=== PATIENT | female | born 1960 | race Caucasian/White ===

== ENCOUNTER 2016-06-27 18:30 | Inpatient (IN) | payer OTHER, SELFPAY ==
[~2016-06-27] VITALS: Ht 152.4 cm; Wt 80.5 kg
[2016-06-27] MEDS ORDERED: KETOROLAC 30 MG/1 ML IVPush ONE (19:00)
[2016-06-27] MEDS ORDERED: SODIUM CHLORIDE 0.9% 1,000ML IVBOLUS ONE (19:00)
[2016-06-27] MEDS ORDERED: ONDANSETRON 2MG/ML, 2ML IVPush ONE ×2 (19:00→22:00)
[2016-06-27] MEDS ORDERED: ONDANSETRON 2MG/ML, 2ML ONE ×2 (19:01→21:52)
[2016-06-27] MEDS ORDERED: KETOROLAC 30 MG/1 ML ONE (19:01)
[2016-06-27 19:45] LABS: ASPARTATE AMINO TRANSFERASE 23 U/L (15-37); BLOOD UREA NITROGEN 19 mg/dL (7-18)
[2016-06-27] MEDS ORDERED: HYDROmorphone 1 MG/ML, 1ML ONE (20:24)
[2016-06-27] MEDS: HYDROmorphone 1 MG/ML, 1ML IVPush PRN ×2 (20:25→20:34)
[2016-06-27] MEDS ORDERED: ACETAMINOPHEN 325 MG TABLET PO ONE (20:30)
[2016-06-27] MEDS ORDERED: ACETAMINOPHEN 325 MG TABLET ONE (20:32)
[2016-06-28] MEDS ORDERED: SODIUM CHLORIDE 0.9% 1,000 ML IV ONE (00:07)
[2016-06-28] MEDS ORDERED: ONDANSETRON 2MG/ML, 2ML IVPush PRN ×3 (00:30→15:30)
[2016-06-28] MEDS ORDERED: HYDROmorphone 1 MG/ML, 1ML IVPush PRN (00:30)
[2016-06-28 01:04] VITALS: BP 144/80
[2016-06-28 03:29] VITALS: BP 113/61
[2016-06-28] MEDS: ONDANSETRON 2MG/ML, 2ML IVPush PRN ×2 (03:31→17:10)
[2016-06-28] MEDS: SODIUM CHLORIDE 0.9% 1,000 ML IV SCH ×2 (06:36→17:11)
[2016-06-28 06:57] VITALS: BP 113/61
[2016-06-28] MEDS ORDERED: ONDANSETRON 2MG/ML, 2ML IVPush ONE (08:32)
[2016-06-28] MEDS ORDERED: PROMETHAZINE 25 MG/ML, 1ML IM PRN (10:00)
[2016-06-28 10:27] LABS: HCG UR OBC PASS
[2016-06-28 12:58] VITALS: BP 133/84
[2016-06-28] MEDS ORDERED: MIDAZOLAM 1 MG/ML, 2ML ONE (13:23)
[2016-06-28] MEDS ORDERED: FENTANYL PF 250 MCG/5ML ONE (13:23)
[2016-06-28] MEDS ORDERED: ROCURONIUM 10 MG/ML ONE (13:52)
[2016-06-28] MEDS ORDERED: DEXAMETHASONE 4 MG/ML, 1ML ONE (13:52)
[2016-06-28] MEDS ORDERED: PROPOFOL 10 MG/ML, 20ML ONE (13:52)
[2016-06-28] MEDS ORDERED: CEFAZOLIN 1,000 MG ONE (13:52)
[2016-06-28] MEDS ORDERED: SUCCINYLCHOLINE 20 MG/ML, 10ML ONE (13:52)
[2016-06-28] MEDS ORDERED: ONDANSETRON 2MG/ML, 2ML ONE (13:52)
[2016-06-28] MEDS ORDERED: ACETAMINOPHEN 325 MG TABLET PO PRN (15:30)
[2016-06-28] MEDS ORDERED: METOCLOPRAMIDE 5 MG/ML, 2ML IV PRN (15:30)
[2016-06-28] MEDS ORDERED: FENTANYL PF 100 MCG/2ML IV PRN (15:30)
[2016-06-28] MEDS ORDERED: hydrALAzine 20 MG/ML, 1ML IV PRN (15:30)
[2016-06-28] MEDS ORDERED: LABETALOL 5MG/ML, 20ML IV PRN (15:30)
[2016-06-28] MEDS ORDERED: HYDROmorphone 1 MG/ML, 1ML IV PRN (15:30)
[2016-06-28] MEDS ORDERED: OXYcodone 5 MG/5 ML ORAL.SOL UDC PO PRN (15:30)
[2016-06-28] MEDS: HYDROmorphone 1 MG/ML, 1ML IVPush PRN ×2 (17:10→18:14)
[2016-06-28 20:04] VITALS: BP 173/99
[2016-06-28] MEDS ORDERED: HYDROmorphone 1 MG/ML, 1ML IV ONE (21:30)
[2016-06-28 22:00] VITALS: BP 149/106
[2016-06-29 00:46] VITALS: BP 127/83
[2016-06-29] MEDS: SODIUM CHLORIDE 0.9% 1,000 ML IV SCH ×2 (01:37→07:55)
[2016-06-29 05:32] LABS: BLOOD UREA NITROGEN 15 mg/dL (7-18)
[2016-06-29 07:44] VITALS: BP 129/81
[2016-06-29] MEDS: HYDROmorphone 1 MG/ML, 1ML IVPush PRN (07:56)
== END 2016-06-29 12:10 | disposition home or self-care (01) | DRG 694 ==
LOC: ED 21:41 → EDIP 06-28 00:07 → 4NOR 06-28 00:55 → 4WST 06-28 15:49 → DCLOUNGE 06-29 12:00
PROVIDERS: ADMIT Internal Medicine; ATTEND Internal Medicine
PROC: 0T9B70Z Drainage of Bladder with Drainage Device, Via Natural or Artificial Opening (ICD-10-PCS; 2016-06-27)
PROC: 0TF38ZZ Fragmentation in Right Kidney Pelvis, Via Natural or Artificial Opening Endoscopic (ICD-10-PCS; principal; 2016-06-28 18:15)
DX: N13.2 Hydronephrosis with renal and ureteral calculous obstruction (principal); R03.0 Elevated blood-pressure reading, without diagnosis of hypertension; R55 Syncope and collapse; Z83.3 Family history of diabetes mellitus; Z88.2 Allergy status to sulfonamides; Z88.5 Allergy status to narcotic agent
CPT/HCPCS: 36415; 74176; 76700; 80048; 80053; 81001; 81025; 83690; 85025; 87086; 93005; 93306; 96361; 96374; 96375; 96376; J0690; J1100; J1170; J1885; J2250; J2405; J2550; J2704; J3010; C1758; J0330; J7030